=== PATIENT | male | born 1975 | race Caucasian/White ===

== ENCOUNTER 2025-01-27 19:18 | Emergency (ER) | payer OTHER, SELFPAY ==
[2025-01-27 19:53] VITALS: BP 127/82; PULSE 69; RESP 18; TEMP 37.3; O2SAT 99; BMI 25.8
[2025-01-27 20:28] LABS: Strep Grp A by PCR Rapid Negative (Negative)
[2025-01-27 20:52] LABS: COVID-19 CEPHEID 4-PLEX PCR Negative (Negative); Influenza A - CEPHEID Flu A NEGATIVE (NEGATIVE); Influenza B - CEPHEID Flu B NEGATIVE (NEGATIVE); Respiratory Syncytial Virus Negative (Negative)
--- NOTE | 2025-01-27 20:56 | DI.RAD.S_ITS ---
PROCEDURE: XR CHEST 1V INDICATIONS: cough TECHNIQUE: One view of the chest was acquired. COMPARISON: None. FINDINGS: Surgical changes and devices: None. Lungs and pleura: Lungs are clear. No pleural effusions or pneumothorax. Mediastinum: Mediastinal contours appear normal. Heart size is normal. Bones and chest wall: No suspicious bony lesions. Overlying soft tissues appear unremarkable. IMPRESSION: No acute cardiopulmonary pathology. Dictated by: Nasim Yanes M.D. on 01/27/2025 at 21:18 Approved by: Nasim Yanes M.D. on 01/27/2025 at 21:18
--- NOTE | 2025-01-27 21:48 | ED_ITS ---
HPI - URI/Sore Throat General Chief Complaint: Upper Respiratory Symptoms Stated Complaint: cough. headache, eyes irritated Time Seen by Provider: 01/27/25 20:55 Source: patient Mode of arrival: Ambulatory History of Present Illness HPI Narrative: 49-year-old male without any significant past medical history presenting for flu-like symptoms ongoing persistent for the past few days, he states that his had similar symptoms, he states that he was exposed to someone strep throat and is worried about this. He says that he has been having nasal congestion nasal drip as well as cough and sore throat. He denies any other symptoms such as chest pain shortness of breath nausea vomiting abdominal pain or any other GI/ symptoms time. Related Data Home Medications Medication Instructions Recorded Confirmed IBUPROFEN (Motrin / Advil) 800 mg PO ##0 08/22/10 [MELATONIN] 6 mg PO PM ##0 08/22/10 MULTIVITAMIN (Multivitamin 1 cap PO EVERY DAY ##0 08/23/10 -) [AMUNITY VITAMIN SUPP] Q DAY ##0 08/23/10 [GLUCOSAMINE/CHOND.] ##0 08/23/10 CODEINE/ACETAMINOPHEN 1 tab PO ##0 08/24/10 (Acetaminophen-Cod #3 Tablet) Previous Rx's Medication Instructions Recorded fluticasone propionate 50 1 spray intranasal Q12H 3 days #16 01/27/25 mcg/actuation nasal grams spray,suspension (24 Hour Allergy Relief) Allergies Allergy/AdvReac Type Severity Reaction Status Date / Time Penicillin Allergy Unknown Uncoded 12/25/17 12:16 Review of Systems Review of Systems Narrative: General: Denies fever, chills, weight loss HEENT: Positive nasal congestion, Cardiovascular: Denies any chest pain, palpitations, tachycardia Respiratory: Positive cough denies wheeze stridor shortness of breath GI/: Denies any abdominal pain, nausea, vomiting, diarrhea, bright red blood per rectum, melanotic stools, urinary frequency, urinary retention, dysuria, hematuria MSK: Denies any joint pain, muscle pains, swelling Skin: Denies any rashes, lesions, discoloration Neuro: Denies any headache, lightheadedness, dizziness, fainting, weakness Psych: Denies SI/HI Patient History Social History Smoking Status: Never smoker Smoking Status: Never smoker Exam Narrative Exam Narrative: General: Cooperative, well-developed, not in acute distress HEENT: Positive nasal congestion Normocephalic, atraumatic, PERRLA, normal sclera, eyelids normal Neck: Active full range of motion, atraumatic Chest: Normal to inspection, negative crepitus, no overlying erythema ecchymosis Respiratory: Normal respiratory effort, not in acute respiratory distress, clear to auscultation bilaterally negative cough, wheeze, tachypnea, rhonchi, rales Cardiology: Regular rate rhythm negative gallop, murmur, rubs GI/: No tenderness to palpation, soft, non rigid, normal to inspection, exam deferred MSK: Full active range of motion in all 4 extremities, atraumatic, no tenderness to palpation of any bony prominences Skin: No rashes or lesions noted Neuro: Alert awake oriented x3, moves all 4 extremities spontaneously, cranial nerves intact, able to answer all questions appropriately follows commands appropriately Psych: Cooperative, negative suicidal or homicidal ideations Initial Vital Signs Initial Vital Signs: Vital Signs Temperature 99.1 F 01/27/25 19:53 Pulse Rate 69 01/27/25 19:53 Respiratory Rate 18 01/27/25 19:53 Blood Pressure 127/82 01/27/25 19:53 Pulse Oximetry 99 01/27/25 19:53 Oxygen Delivery Method Room Air 01/27/25 19:53 Course Orders Ordered: ED Orders 01/27/25 20:02 Covid-19 + FLU A/B + RSV - PCR Stat Strep Grp A by PCR Rapid Stat 01/27/25 20:56 CXR [XR chest 1V] Stat Vital Signs Vital signs: Vital Signs - 8 hr 01/27/25 19:53 Temperature 99.1 F Pulse Rate 69 Respiratory Rate 18 Blood Pressure 127/82 Pulse Oximetry 99 Oxygen Delivery Method Room Air MDM - URI/Sore Throat Differential Diagnosis Differential diagnosis: Likely upper respiratory infection, sinusitis and viral infection Lab Data Labs: Lab Results 01/27/25 Range/Units 20:02 SARS-CoV-2 (PCR) Negative (Negative) Influenza A (RT-PCR) Flu a negative (NEGATIVE) Influenza B (RT-PCR) Flu b negative (NEGATIVE) RSV (PCR) Negative (Negative) Group A Strep (PCR) Negative (Negative) MDM Narrative Medical decision making narrative: 49-year-old male without any significant past medical history presenting for flu-like symptoms ongoing persistent for the past few days, has similar symptoms which she had 1st, however he states that he was exposed to someone with strep throat and is worried that he might have this due to the fact that he has been having nasal congestion cough and a sore throat, patient is well- appearing nontoxic strep throat negative respiratory BioFire negative, chest x- ray without any acute cardiopulmonary abnormality, he will be discharged home with symptomatic relief instructed follow up with the primary care in outpatient setting he is well-appearing nontoxic not requiring any supplemental oxygen he verbalized understanding of this and agrees to being discharged home with outpatient follow up Discharge Plan Departure Patient Disposition: Home Clinical Impression: Upper respiratory infection Activity Restrictions/Additional Instructions: Please follow up with her primary care doctor Please read the discharge instructions sheet carefully and bring all papers to all doctor follow-up visits, as it may contain information that your doctor may want to see. Disease processes change and evolve, if your symptoms worsen or if you develop any new symptoms that are concerning to you please return for evaluation. Your evaluation today does not show any evidence of any life- threatening/serious illnesses requiring admission to the hospital or surgery. Please follow-up with your doctor for re-evaluation in approximately 1 day. Seek immediate medical attention for any worrisome symptoms. *If you do not have a primary care provider please contact the [facility] Resource line at [phone]. They will ask some questions about your medical history and help get you set up with a doctor in the community. Prescriptions: New fluticasone propionate [24 Hour Allergy Relief] 50 mcg/actuation spray,suspension 1 spray intranasal Q12H 3 Days Qty: 16 0RF Rx Instructions: administer into each nostril No Action IBUPROFEN (Motrin / Advil) 800 mg PO Qty: 0 [MELATONIN] 6 mg PO PM Qty: 0 MULTIVITAMIN (Multivitamin -) 1 cap PO EVERY DAY Qty: 0 [AMUNITY VITAMIN SUPP] Q DAY Qty: 0 [GLUCOSAMINE/CHOND.] Qty: 0 CODEINE/ACETAMINOPHEN (Acetaminophen-Cod #3 Tablet) 1 tab PO Qty: 0 Stand Alone Forms: Patient Portal/API/Survey
[2025-01-27 22:25] VITALS: BP 117/68; PULSE 70; RESP 14; O2SAT 98
== END 2025-01-27 22:15 | disposition home or self-care (01) ==
PROVIDERS: Emergency Provider Student in an Organized Health Care Education/Training Program
DX: J06.9 Acute upper respiratory infection, unspecified (principal)
CPT/HCPCS: 0241U; 71045; 87651; 99281; 99283